=== PATIENT | female | born 1990 | race Caucasian/White ===

== ENCOUNTER 2016-07-26 13:59 | Emergency (ER) | payer SELFPAY ==
[2016-07-26 14:22] LABS: URINE APPEARANCE CLEAR; URINE BILIRUBIN NEGATIVE (NEGATIVE); URINE BLOOD SMALL (NEGATIVE); URINE COLOR YELLOW; URINE GLUCOSE (UA) NEGATIVE (NEGATIVE); URINE KETONE NEGATIVE (NEGATIVE); URINE LEUKOCYTE ESTERASE NEGATIVE (NEGATIVE); URINE NITRITE NEGATIVE (NEGATIVE); URINE PROTEIN NEGATIVE (NEGATIVE); URINE UROBILINOGEN 0.2 E.U./dL (0.20 - 1.00)
[2016-07-26 14:24] LABS: HCG,QUALITATIVE URINE NEGATIVE (NEGATIVE)
--- NOTE | 2016-07-26 14:27 | Emergency Department Record ---
History of Present Illness - General Chief Complaint: Abdominal Pain Stated Complaint: ABDOMIN PAIN Time Seen by Provider: 07/26/16 14:18 Mode of Arrival: Ambulatory - History of Present Illness Initial Comments: Right lower quad pain started yesterday at 1pm and pin is intermittent. She ate dinner, no vomiting , no diarrhea and No dysuria , No vaginal bleeding , No pain with sex . MD Complaint: Abdominal pain Onset/Timin -: Days(s) Location: RLQ Severity: Mild Quality: Sharp Consistency: Intermittent Improves With: Other Worsens With: Nothing Associated Symptoms: Denies other symptoms Treatments Prior to Arrival: NSAIDs - Related Data LMP Date: 07/08/16 LMP (females 10-50): 3 weeks ago Patient : No Previous Rx's Medication Instructions Recorded Naproxen [Naprosyn] 500 mg PO Q12H #20 tab. 07/26/16 Allergies Allergy/AdvReac Type Severity Reaction Status Date / Time No Known Drug Allergies Allergy Verified 07/26/16 14:47 Travel Screening - Travel/Exposure Within Last 30 Days Have you traveled within the last 30 days?: Yes Location Detail:: [place] - Travel/Exposure Within Last Year Have you traveled outside the [place] in the last year?: No - Additonal Travel Details Have you been exposed to anyone with a communicable illness?: No - Travel Symptoms Symptom Screening: None Review of Systems Reviewed: No additional complaints except as noted below Constitutional: Reports: As per HPI. Denies: Chills, Fever, Malaise, Night sweats, Weakness, Weight change Eyes: Reports: As per HPI. Denies: Eye discharge, Eye pain, Photophobia, Vision change ENT: Reports: As per HPI. Denies: Congestion, Dental pain, Ear pain, Epistaxis , Hearing loss, Throat pain Respiratory: Reports: As per HPI. Denies: Cough, Dyspnea, Hemoptysis, Stridor, Wheezes Cardiovascular: Reports: As per HPI. Denies: Arrhythmia, Chest pain, Dyspnea on exertion, Edema, Murmurs, Orthopnea, Palpitations, Paroxysmal nocturnal dyspnea, Rheumatic Fever, Syncope Endocrine: Reports: As per HPI. Denies: Fatigue, Heat or cold intolerance, Polydipsia, Polyuria Gastrointestinal: Reports: As per HPI, Abdominal pain (right side abdominal pain worse in the right lower quad). Denies: Constipation, Diarrhea, Hematemesis, Hematochezia, Melena, Nausea, Vomiting Genitourinary: Reports: As per HPI. Denies: Abnormal menses, Discharge, Dyspareunia, Dysuria, Frequency, Hematuria, Incontinence, Retention, Urgency Musculoskeletal: Reports: As per HPI. Denies: Arthralgia, Back pain, Gout, Joint swelling, Myalgia, Neck pain Skin: Reports: As per HPI. Denies: Bruising, Change in color, Change in hair/ nails, Lesions, Pruritus, Rash Neurological: Reports: As per HPI. Denies: Abnormal gait, Confusion, Headache, Numbness, Paresthesias, Seizure, Tingling, Tremors, Vertigo, Weakness Psychiatric: Reports: As per HPI. Denies: Anxiety, Auditory hallucinations, Depression, Homicidal thoughts, Suicidal thoughts, Visual hallucinations Hematological/Lymphatic: Reports: As per HPI. Denies: Anemia, Blood Clots, Easy bleeding, Easy bruising, Swollen glands Past Medical History - SOCIAL HISTORY Smoking Status: Never smoker Alcohol Use: Occassional Drug Use: None - RESPIRATORY Hx Respiratory Disorders: No - CARDIOVASCULAR Hx Cardio Disorders: No - NEURO Hx Neuro Disorders: No - GI Hx GI Disorders: No - Hx Genitourinary Disorders: No - ENDOCRINE Hx Endocrine Disorders: No - MUSCULOSKELETAL Hx Musculoskeletal Disorders: No - PSYCH Hx Psych Problems: No - HEMATOLOGY/ONCOLOGY Hx Hematology/Oncology Disorders: No Family Medical History Any Significant Family History?: Yes Hx Cancer: Mother, Grandparents Hx Heart Disease: Grandparents Physical Exam - General General Appearance: Alert, Oriented x3, Cooperative, No acute distress - Head Head exam: Normal inspection - Eye Eye exam: Normal appearance, PERRL Pupils: Normal accommodation - ENT ENT exam: Normal exam, Mucous membranes moist, Normal external ear exam, Normal orophraynx, TM's normal bilaterally Ear exam: Normal external inspection. negative: External canal tenderness Nasal Exam: Normal inspection. negative: Discharge, Sinus tenderness Mouth exam: Normal external inspection, Tongue normal Teeth exam: Normal inspection. negative: Dental caries Throat exam: Normal inspection. negative: Tonsillar erythema, Tonsillar exudate - Neck Neck exam: Normal inspection, Full ROM. negative: Tenderness - Respiratory Respiratory exam: Normal lung sounds bilaterally. negative: Respiratory distress - Cardiovascular Cardiovascular Exam: Regular rate, Normal rhythm, Normal heart sounds - GI/Abdominal GI/Abdominal exam: Soft, Normal bowel sounds, Tenderness (right sided lower abd pain) - Rectal Rectal exam: Deferred - exam: Adnexal tenderness (R). negative: Adnexal mass (L), Adnexal mass (R), Adnexal tenderness (L), Cervical discharge, cervical motion tenderness, Vaginal bleeding, Vaginal discharge - Extremities Extremities exam: Normal inspection, Full ROM, Normal capillary refill. negative: Tenderness - Back Back exam: Reports: Normal inspection, Full ROM. Denies: Muscle spasm, Rash noted, Tenderness - Neurological Neurological exam: Alert, Normal gait, Oriented X3, Reflexes normal - Psychiatric Psychiatric exam: Normal affect, Normal mood - Skin Skin exam: Dry, Intact, Normal color, Warm Course Vital Signs 07/26/16 07/26/16 14:05 14:09 Temperature 98.8 F 98.8 F Pulse Rate [ 76 Pulse Ox Probe] Respiratory 23 23 Rate Blood Pressure 127/71 [Left Arm] Pulse Ox 100 100 Medical Decision Making - Data Complexity MDM Data: Labs Ordered and/or Reviewed, X-Ray Ordered and/or Reviewed ( follicles in the right ovary and some free fluid and some lympn nodes which will need follow up to check for stability.) - Lab Data Result diagrams: 07/26/16 14:40 07/26/16 14:40 Disposition Clinical Impression: Ovarian cyst Abdominal pain Qualifiers: Abdominal location: right lower quadrant Qualified Code(s): R10.31 - Right lower quadrant pain Disposition: Home, Self-Care Condition: (1) Good Instructions: Abdominal Pain (ED), Ovarian Cyst (ED) Additional Instructions: follow up with family to make sure this resolves and she needs follow up on periarotic lymphnods seen. naprosyn 500 mg BID Prescriptions: Naproxen [Naprosyn] 500 mg PO Q12H #20 tab.dr Forms: Patient Portal Access Time of Disposition: 16:02
[2016-07-26 14:30] LABS: URINE BACTERIA FEW
[2016-07-26] MEDS ORDERED: KETOROLAC 30 MG/ML VIAL IVP ONE (14:31)
[2016-07-26] MEDS ORDERED: 0.9 % SODIUM CHLORIDE 1,000 ML BAG IV ONE (14:31)
[2016-07-26 15:19] LABS: URINE WBC 0 - 2 (0-2/hpf)
[2016-07-26 15:48] LABS: BASO % 0.1 % (0-6); EOS % 0.4 % (0-6); GRAN % 57.3 % (47-80); HEMATOCRIT 38.5 % (35.0-47.0); HEMOGLOBIN 13.2 gm/dl (11.6-16.0); LYMPH % 36.2 % (16-45); MEAN CORPUSCULAR HEMOGLOBIN 30.8 pg (27-33); MEAN CORPUSCULAR HGB CONC 34.3 g/dl (32-36); MEAN PLATELET VOLUME 10.3 fl (7.4-10.4); PLATELET COUNT 222 K/uL (130-400); RED BLOOD COUNT 4.28 M/uL (3.80-5.40); RED CELL DISTRIBUTION WIDTH 11.8 % (11.5-14.5); WHITE BLOOD COUNT W/O DIFF 8.5 K/uL (4.2-12.2)
[2016-07-26 15:53] LABS: ALBUMIN 4.3 gm/dL (3.5-5.0); ALKALINE PHOSPHATASE 65 U/L (38-126); ALT/SGPT 23 U/L (9-52); ANION GAP 7.8 (7-16); AST/SGOT 16 U/L (14-36); BILIRUBIN,TOTAL 0.56 mg/dL (0.2-1.3); BLOOD UREA NITROGEN 17 mg/dL (7-17); CARBON DIOXIDE 22.2 mmol/L (22-30); CREATININE 0.7 mg/dL (0.52-1.04); EST GLOMERULAR FILTRATION RATE > 60 ml/min; GLUCOSE,RANDOM 80 mg/dL (70-110); LIPASE 31 U/L (23-300); TOTAL PROTEIN 7.1 gm/dL (6.3-8.2)
[2016-07-27 16:53] LABS: GC SPECIMEN TYPE Cervix
--- NOTE | 2016-07-28 08:40 | CT SCAN REPORT ---
EXAM: CT SCAN OF THE ABDOMEN AND PELVIS WITHOUT CONTRAST HISTORY: RIGHT LOWER QUADRANT ABDOMINAL PAIN AND RIGHT FLANK PAIN. TECHNIQUE: Standard CT imaging of the abdomen and pelvis was performed without contrast. Comparison: None. FINDINGS: The lung bases are clear. The liver, gallbladder, biliary tree, pancreas, spleen, and adrenal glands are normal. The stomach and epigastrium are unremarkable. The kidneys and ureters are normal. There is no urinary tract calculus or obstructive uropathy. The aorta is normal in caliber. There are scattered nonenlarged and mildly enlarged lymph nodes within the retroperitoneum. The largest individual node is located within the left paraaortic region just below the level of the renal artery. This measures 1.2 x 1.6 cm. Other scattered nonenlarged retroperitoneal and mesenteric lymph nodes are also present. There is a 1.1 x 1.3 cm lymph node within the right hemipelvis just medial to the right common iliac artery. Nonenlarged inguinal region lymph nodes are also present. The large and small bowel loops are normal. The appendix is partially visualized and is normal. There are low density areas within the right ovary suggesting follicles. There is a small amount of fluid within the posterior cul -de-sac. The uterus and left ovary are normal. The urinary bladder is unremarkable. There are no acute osseous abnormalities. IMPRESSION: 1. SMALL FOLLICLES WITHIN THE RIGHT OVARY WITH A SMALL AMOUNT OF FREE FLUID IN THE POSTERIOR CUL-DE-SAC. THE APPEARANCE SUGGESTS RECENT OVARIAN FOLLICLE/CYST RUPTURE. 2. NO EVIDENCE FOR ACUTE APPENDICITIS. 3. THERE ARE NONSPECIFIC, MILDLY ENLARGED LYMPH NODES WITHIN THE PARAAORTIC AND RIGHT ILIAC CHAIN REGIONS OF UNCERTAIN ETIOLOGY. A FOLLOW-UP CT SCAN IS RECOMMENDED IN THREE MONTHS TO CONFIRM STABILITY OR RESOLUTION. 4. THE REMAINING PORTIONS OF THE ABDOMEN AND PELVIS ARE NORMAL. JOB NUMBER: [id number] [facility]
== END 2016-07-26 16:31 | disposition home or self-care (01) ==
LOC: ER 13:59
DX: N83.201 Unspecified ovarian cyst, right side (principal); R10.31 Right lower quadrant pain
CPT/HCPCS: 99284 ×2; 96374; 83690; 85025; 80076; 80048; 81001; 81025; 74176; Q0111; J1885; 87210; J7030